=== PATIENT | male | born 1945 ===

== ENCOUNTER 2019-01-11 07:58 | Day surgery (SDC) | payer MEDICARE, OTHER ==
[2019-01-11] MEDS ORDERED: Midazolam* 1 MG/ML 2 ML VIAL (2 MG) ONE ×2 (10:30→10:51)
[2019-01-11 11:19] VITALS: BP 111/77
--- NOTE | 2019-01-11 11:56 | OP ---
OPERATIVE NOTE: DATE OF OPERATION: 01/11/19 DATE OF : 49 SURGEON: Brijesh Sorto M.D. PREOPERATIVE DIAGNOSIS: Cataract, left eye. POSTOPERATIVE DIAGNOSIS: Cataract, left eye. OPERATIVE PROCEDURE: Extracapsular cataract extraction with intraocular lens implant left eye. PROCEDURE: The patient was brought to the operating room after being given 1/2% Alcaine with epineph rine drops in the preoperative area. The eye was prepped and draped in the usual sterile fashion. S terile drape and eyelid speculum were placed. Again, topical 1/2% Alcaine with epinephrine was given . A paracentesis incision was made at the 3 o'clock position with the No.75 blade. Clear cornea inc ision 2.2 x 2.2-mm was created at the 3 o'clock position starting at the anterior limbus using the 2. 2-mm keratome. The anterior chamber was irrigated with 0.4 mL of 1% non-preservative intracameral li docaine and filled with DisCoVisc. A capsulorrhexis was completed using the cystotome and the Utrata forceps. Hydrodissection was performed with balanced salt solution. The lens nucleus was removed wi th the Phacoemulsification handpiece without incident. Cortex was removed with the irrigation-aspira tion handpiece. The capsular bag was re-inflated using DisCoVisc and an SN60WF 22.5 implant was inse rted with the shooter. The irrigation-aspiration handpiece was used to remove all residual DisCoVisc . The eye was refilled with balanced salt solution and the wound checked and found to be watertight. Topical Maxitrol drops were given. [id number]/[facility] #: [id number]
[2019-01-11] MEDS ORDERED: Phenylephrine OPHTH SOL 2.5%* 2 ML ONE (12:21)
[2019-01-11] MEDS ORDERED: Povidone Iodine 5% OPTH* 30 ML BTL ONE (12:21)
[2019-01-11] MEDS ORDERED: Cyclopentolate 1% OPTH.SOL* 2 ML BTL ONE (12:21)
[2019-01-11] MEDS ORDERED: Lidocaine 2% w/ EPI 1:200,000* 20 ML VIAL ONE (12:21)
[2019-01-11] MEDS ORDERED: Ketorolac 0.5% OPHTH (NF) 0.5 % 5 ML BTL ONE (12:21)
[2019-01-11] MEDS ORDERED: Neomycin/Polymy/Dex OPTH.SUSP* MAXITROL 0.1% 5 ML ONE (12:21)
[2019-01-11] MEDS ORDERED: acetaZOLAMIDE TAB* 250 MG ONE (12:21)
[2019-01-11] MEDS ORDERED: Lidocaine 1% MPF ** 5 ML VIAL ONE (12:21)
[2019-01-11] MEDS ORDERED: Proparacaine 0.5% OPHTH.SOL* 15 ML BTL ONE (12:22)
[2019-01-13] MEDS ORDERED: Acetaminophen TAB* 325 MG PO PRN (05:00)
== END 2019-01-11 11:19 | disposition home or self-care (01) ==
LOC: OREAST 07:58
PROVIDERS: ATTEND Specialist
DX: H25.812 Combined forms of age-related cataract, left eye (principal); H35.712 Central serous chorioretinopathy, left eye; Z87.891 Personal history of nicotine dependence; I10 Essential (primary) hypertension; J45.909 Unspecified asthma, uncomplicated
CPT/HCPCS: A9270-GY; J2250; V2632

== ENCOUNTER 2019-01-18 09:34 | Day surgery (SDC) | payer MEDICARE, OTHER ==
[~2019-01-18 09:34] MED LIST: Buffered Lidocaine 1% SYRIN* 1 ML/SYRINGE INTRADERM ONE
[2019-01-18] MEDS ORDERED: Midazolam* 1 MG/ML 2 ML VIAL (2 MG) ONE (11:51)
[2019-01-18 12:19] VITALS: BP 138/76
--- NOTE | 2019-01-18 12:44 | OP ---
OPERATIVE NOTE: DATE OF OPERATION: 01/18/19 DATE OF : 49 SURGEON: Brijesh Sorto M.D. PREOPERATIVE DIAGNOSIS: Cataract, right eye. POSTOPERATIVE DIAGNOSIS: Cataract, right eye. OPERATIVE PROCEDURE: Extracapsular cataract extraction with IOL, right eye. PROCEDURE: The patient was brought to the operating room after being given 1/2% Alcaine with epineph rine drops in the preoperative area. The eye was prepped and draped in the usual sterile fashion. S terile drape and eyelid speculum were placed. Again, topical 1/2% Alcaine with epinephrine was given . A paracentesis incision was made at the 9 o'clock position with the No.75 blade. Clear cornea inc ision 2.2 x 2.2-mm was created at the 12 o'clock position starting at the anterior limbus using the 2 .2-mm keratome. The anterior chamber was irrigated with 0.4 mL of 1% non-preservative intracameral l idocaine and filled with DisCoVisc. A capsulorrhexis was completed using the cystotome and the Utrat a forceps. Hydrodissection was performed with balanced salt solution. The lens nucleus was removed w ith the Phacoemulsification handpiece without incident. Cortex was removed with the irrigation-aspir ation handpiece. The capsular bag was re-inflated using DisCoVisc and an [id number] 22 implant was inser maykel with the shooter. The irrigation-aspiration handpiece was used to remove all residual DisCoVisc. The eye was refilled with balanced salt solution and the wound checked and found to be watertight. Topical Maxitrol drops were given. [id number]/[facility] #: [id number]
[2019-01-18] MEDS ORDERED: Phenylephrine OPHTH SOL 2.5%* 2 ML ONE (14:24)
[2019-01-18] MEDS ORDERED: Proparacaine 0.5% OPHTH.SOL* 15 ML BTL ONE (14:24)
[2019-01-18] MEDS ORDERED: Cyclopentolate 1% OPTH.SOL* 2 ML BTL ONE (14:24)
[2019-01-18] MEDS ORDERED: Lidocaine 1% MPF ** 5 ML VIAL ONE (14:24)
[2019-01-18] MEDS ORDERED: Neomycin/Polymy/Dex OPTH.SUSP* MAXITROL 0.1% 5 ML ONE (14:24)
[2019-01-18] MEDS ORDERED: Lidocaine 2% w/ EPI 1:200,000* 20 ML VIAL ONE (14:24)
[2019-01-18] MEDS ORDERED: Povidone Iodine 5% OPTH* 30 ML BTL ONE (14:24)
[2019-01-18] MEDS ORDERED: Ketorolac 0.5% OPHTH (NF) 0.5 % 5 ML BTL ONE (14:24)
[2019-01-18] MEDS ORDERED: acetaZOLAMIDE TAB* 250 MG ONE (14:24)
== END 2019-01-18 12:26 | disposition home or self-care (01) ==
LOC: OREAST 09:34
PROVIDERS: ATTEND Specialist
DX: H25.811 Combined forms of age-related cataract, right eye (principal); H35.712 Central serous chorioretinopathy, left eye; I10 Essential (primary) hypertension; J45.909 Unspecified asthma, uncomplicated; Z87.891 Personal history of nicotine dependence
CPT/HCPCS: A9270-GY; J2250; V2632

== ENCOUNTER 2022-05-03 06:13 | Observation (INO) ==
[2022-05-03] MEDS ORDERED: Lactated Ringers SEPSIS* BAG 2,720 ML IV ONE (06:34)
[2022-05-03] MEDS ORDERED: cefTRIAXone 1 gm/50 mL D5W 1 GM/50 ML BAG IV ONE (06:34)
[2022-05-03 06:58] LABS: ABS Basophils 0.1 10^3/ul (0-0.2); ABS Lymphocytes 0.5 10^3/ul (1.0-4.8); ABS Monocytes 0.8 10^3/ul (0-0.8); Eosinophil % 0.1 %; Hematocrit 39 % (42-52); Hemoglobin 13.3 g/dL (14.0-18.0); Lymphocyte % 2.8 %; Mean Corpuscular HGB Conc 35 g/dL (31-36); Mean Corpuscular Hemoglobin 34 pg (27-31); Mean Corpuscular Volume 98 fL (80-94); Mean Platelet Volume 7.8 fL (7.4-10.4); Platelet Count 131 10^3/uL (150-450); Red Blood Count 3.94 10^6 /uL (4.18-5.48); Red Cell Distribution Width 15 % (10-15); White Blood Count 17.4 10^3/uL (3.5-10.8)
[2022-05-03 07:37] LABS: Activated Partial Thrombo Time 24.6 seconds (26.0-38.0); INR 1.21 (0.89-1.11)
[2022-05-03 07:44] LABS: Albumin 4.1 g/dL (3.2-5.2); Albumin/Globulin Ratio 1.9 (1-3); C Reactive Protein 96.26 mg/L (<8.01); Calcium 8.8 mg/dL (8.6-10.3); Globulin 2.2 g/dL (2-4); Potassium 3.5 mmol/L (3.5-5.0); Total Protein 6.3 g/dL (6.4-8.9); eGFR CKD-EPI 59.5 (>60)
[2022-05-03 08:50] LABS: Urine Appearance Cloudy; Urine Bilirubin Negative (Negative); Urine Blood 3+ (Negative); Urine Color Amber; Urine Glucose Negative (Negative); Urine Ketones Negative (Negative); Urine Nitrite Negative (Negative); Urine Protein 2+(100 mg/dL) (Negative); Urine Specific Gravity 1.015 (1.002-1.030); Urine Urobilinogen Negative (Negative)
[2022-05-03 09:00] LABS: Urine Bacteria 1+ (Absent); Urine Red Blood Cell 3+(>10/hpf) (Absent); Urine Squamous Epithelial Cell Present (Absent); Urine White Blood Cell 3+(>20/hpf) (Absent)
[2022-05-03 09:18] LABS: High Sensitivity Troponin 1 Hr 52 pg/mL (<20)
[2022-05-03] MEDS ORDERED: Metoclopramide 5 MG/ML VIAL (10 mg) IV ONE (10:09)
[2022-05-03] MEDS ORDERED: Albuterol HFA INHALER 8 gm MDI INH PRN (11:17)
[2022-05-03] MEDS ORDERED: Ondansetron 4 mg VIAL 2 MG/ML 2 ml VIAL IV PRN (11:17)
[2022-05-03] MEDS: NS 0.9% 1000 ml BAG 1,000 ML IV SCH ×2 (13:13→16:54)
[2022-05-03] MEDS: Enoxaparin 40 MG/0.4 ML SYR SUBCUT SCH (13:15)
[2022-05-03 18:01] LABS: High Sensitivity Troponin 3 Hr 73 pg/mL (<20)
[2022-05-03] MEDS: Mometasone/Formoter 200/5 MDI INH SCH (19:20)
[2022-05-04] MEDS: NS 0.9% 1000 ml BAG 1,000 ML IV SCH ×2 (03:06→15:26)
[2022-05-04 06:58] LABS: Hematocrit 35 % (42-52); Mean Corpuscular HGB Conc 34 g/dL (31-36); Mean Corpuscular Hemoglobin 34 pg (27-31); Mean Corpuscular Volume 98 fL (80-94); Mean Platelet Volume 8.5 fL (7.4-10.4); Platelet Count 109 10^3/uL (150-450); Red Blood Count 3.55 10^6 /uL (4.18-5.48); Red Cell Distribution Width 15 % (10-15); White Blood Count 25.3 10^3/uL (3.5-10.8)
[2022-05-04 07:10] LABS: Calcium 8.3 mg/dL (8.6-10.3); Potassium 3.6 mmol/L (3.5-5.0); eGFR CKD-EPI 47.5 (>60)
[2022-05-04] MEDS: Mometasone/Formoter 200/5 MDI INH SCH ×2 (07:52→19:17)
[2022-05-04] MEDS: cefTRIAXone 1 gm/50 mL D5W 1 GM/50 ML BAG IV SCH (08:15)
[2022-05-04] MEDS: Enoxaparin 40 MG/0.4 ML SYR SUBCUT SCH (12:03)
[2022-05-04] MEDS ORDERED: Perflutren Lipid Microsphere 3 ML VIAL ONE (13:53)
[2022-05-05] MEDS: NS 0.9% 1000 ml BAG 1,000 ML IV SCH (01:37)
[2022-05-05 08:07] LABS: Hematocrit 32 % (42-52); Hemoglobin 11.1 g/dL (14.0-18.0); Mean Corpuscular HGB Conc 35 g/dL (31-36); Mean Corpuscular Hemoglobin 34 pg (27-31); Mean Corpuscular Volume 96 fL (80-94); Red Blood Count 3.33 10^6 /uL (4.18-5.48); Red Cell Distribution Width 15 % (10-15); White Blood Count 10.7 10^3/uL (3.5-10.8)
[2022-05-05 08:25] LABS: ABS Lymphocytes 0.6 10^3/ul (1.0-4.8); ABS Monocytes 0.8 10^3/ul (0-0.8); ABS Neutrophils 9.3 10^3/ul (1.5-7.7); Eosinophil % 0.1 %; Mean Platelet Volume 8.1 fL (7.4-10.4); Platelet Count 97 10^3/uL (150-450)
[2022-05-05 08:34] LABS: Calcium 7.9 mg/dL (8.6-10.3); Potassium 3.8 mmol/L (3.5-5.0); eGFR CKD-EPI 61.8 (>60)
[2022-05-05] MEDS: cefTRIAXone 1 gm/50 mL D5W 1 GM/50 ML BAG IV SCH (08:44)
[2022-05-05] MEDS: Mometasone/Formoter 200/5 MDI INH SCH (08:47)
[2022-05-05 10:57] VITALS: BP 128/86
[2022-05-05] MEDS: Enoxaparin 40 MG/0.4 ML SYR SUBCUT SCH (11:32)
[2022-05-06 18:01] LABS: Anaplasma phagocytophilum Negative (Negative); B. miyamotoi PCR, B Negative (Negative); Babesia divergens/MO-1 Negative (Negative); Babesia ducani Negative (Negative); Ehrlichia chaffeensis Negative (Negative); Ehrlichia ewingii/canis Negative (Negative); Ehrlichia muris eauclairensis Negative (Negative)
== END 2022-05-05 12:30 | disposition home or self-care (01) ==
LOC: ED 06:13 → EDHOLD 06:13 → MED 16:20
PROVIDERS: ADMIT Hospitalist; ATTEND Hospitalist